=== PATIENT | male | born 1995 | race Caucasian/White ===

== ENCOUNTER 2018-02-06 19:57 | Emergency (ER) | payer SELFPAY ==
[~2018-02-06] VITALS: Ht 170.2 cm; Wt 73.0 kg
[2018-02-06] MEDS ORDERED: LORAZEPAM 2MG/ML CPJ IM ONE ×2 (20:45→21:30)
[2018-02-06] MEDS ORDERED: OLANZAPINE 10 MG/VIAL IM ONE (20:45)
[2018-02-06] MEDS ORDERED: SODIUM CHLORIDE 0.9% 1,000 ML IV ONE (20:48)
[2018-02-06 21:00] LABS: CLARITY URINE CLEAR (CLEAR); COLOR URINE DARK YELLOW (YELLOW); KETONES URINE 1+ (NEGATIVE); LEUKOCYTE ESTERASE URINE NEGATIVE (NEGATIVE); NITRITE URINE NEGATIVE (NEGATIVE); OCCULT BLOOD URINE 2+ (NEGATIVE); PH URINE 5.5 (4.5-8.0); PROTEIN URINE 1+ (NEGATIVE); SPECIFIC GRAVITY URINE 1.036 (1.005-1.030)
[2018-02-06 21:10] LABS: *AMPHETAMINES SCREEN URINE NEGATIVE (NEGATIVE); *BARBITURATES SCREEN URINE NEGATIVE (NEGATIVE); *BENZODIAZEPINES SCREEN URINE NEGATIVE (NEGATIVE); *COCAINE SCREEN URINE NEGATIVE (NEGATIVE); METHADONE URINE SCREEN NEGATIVE (NEGATIVE); OPIATES URINE SCREEN NEGATIVE (NEGATIVE); PHENCYCLIDINE URINE SCREEN NEGATIVE (NEGATIVE)
[2018-02-06 21:11] LABS: CANNABINOID URINE SCREEN PRESUMTIVE POSITIVE (NEGATIVE)
[2018-02-06 21:33] LABS: BASOPHILS % 0.1 % (0.0-2.0); HEMATOCRIT. 49.2 % (42.0-52.0); HEMOGLOBIN. 16.9 g/dL (14.0-18.0); LYMPHOCYTES % 8.5 % (20.0-50.0); MEAN CORPUSCULAR HEMOGLOBIN 32.7 pg (28.0-32.0); MEAN CORPUSCULAR VOLUME 95.3 fL (80.0-94.0); MEAN PLATELET VOLUME 8.6 fl (7.4-10.4); NEUTROPHILS % 82.4 % (40.0-76.0); PLATELET 211 x1000/uL (130-400); RED BLOOD CELL COUNT 5.16 mill/uL (4.7-6.1); RED CELL DISTRIBUTION WIDTH 12.9 % (11.6-14.6)
[2018-02-06 21:45] LABS: CHLORIDE 102 mEq/L (98-107)
[2018-02-06 21:51] LABS: ETHANOL BLOOD < 10 mg/dL
[2018-02-06 22:57] LABS: CREATINE KINASE 31776 IU/L (39-308)
[2018-02-07] MEDS ORDERED: CARBAMIDE PEROXIDE 6.5% OTIC SOLN 15ML EACH EAR ONE (09:00)
[2018-02-07 10:10] VITALS: BP 128/82
[2018-02-07 11:00] LABS: CHLORIDE 107 mEq/L (98-107)
[2018-02-07 11:38] LABS: CREATINE KINASE 8312 IU/L (39-308)
== END 2018-02-07 11:59 | disposition home or self-care (01) ==
LOC: EDBD 21:43 → ER 21:43
DX: T40.7X1A Poisoning by cannabis (derivatives), accidental (unintentional), initial encounter (principal); G92 Toxic encephalopathy; R00.0 Tachycardia, unspecified; Y92.488 Other paved roadways as the place of occurrence of the external cause
CPT/HCPCS: 36415; 80048; 80053; 80305; 80307; 80329; 81003; 82550; 82962; 84443; 84484; 85025; 93005; 96372; 99285; G0482; J2060; J3490; J7030; Z7610